=== PATIENT | male | born 1955 | race Caucasian/White ===

== ENCOUNTER 2018-01-31 21:43 | Emergency (ER) | payer OTHER ==
[2018-01-31 22:39] LABS: ADD MAN DIFF? NO
[2018-01-31] MEDS: SOD CHLORIDE 0.9% 1,000 ML IV (22:41)
[2018-01-31 22:43] LABS: WHITE BLOOD COUNT 10.9 10^3/ul (4.8-10.8)
[2018-01-31 22:43] LABS: BASOPHIL # 0.1 10^3/ul (0.0-0.1); BASOPHILS % 0.6 % (0.0-2.0); EOSINOPHILS # 0.1 10^3/ul (0.0-0.5); EOSINOPHILS % 0.6 % (0.0-7.0); HEMATOCRIT 37.9 % (42.0-52.0); HEMOGLOBIN 12.5 g/dl (14.0-18.0); LYMPHOCYTES # 0.9 10^3/ul (0.8-2.9); LYMPHOCYTES % 7.9 % (15.0-51.0); MEAN CORPUSCULAR HEMOGLOBIN 31.9 pg (29.0-33.0); MEAN CORPUSCULAR VOLUME 96.7 fl (82.0-101.0); MEAN PLATELET VOLUME 10.7 fl (7.4-10.4); MONOCYTE # 0.5 10^3/ul (0.3-0.9); NEUTROPHIL # 9.2 10^3/ul (1.6-7.5); NEUTROPHILS % 85.1 % (39.0-77.0); PLATELET COUNT 217 10^3/UL (140-415); RED BLOOD COUNT 3.92 10^6/ul (4.70-6.10); RED CELL DISTRIBUTION WIDTH 12.6 % (11.5-14.5)
[2018-01-31] MEDS: ONDANSETRON 4 MG INJ IV (22:54)
[2018-01-31 23:03] LABS: ANION GAP 15 (8-16); BLOOD UREA NITROGEN 32 mg/dl (7-20); CALCIUM 9.1 mg/dl (8.4-10.2); CARBON DIOXIDE 33 mmol/L (21-31); CHLORIDE 97 mmol/L (97-110); CREATININE 8.08 mg/dl (0.61-1.24); GLUCOSE 134 mg/dl (70-220); SODIUM 141 mmol/L (135-144)
[2018-01-31 23:14] LABS: TROPONIN-I < 0.012 ng/ml (0.000-0.120)
== END 2018-02-01 01:07 | disposition home or self-care (01) ==
LOC: E/R 02-01 01:07
DX: R55 Syncope and collapse (principal); I10 Essential (primary) hypertension
CPT/HCPCS: 36415; 71045; 80048; 84484; 85025; 93005; 99285-25